=== PATIENT | female | born 1940 | race Caucasian/White ===

== ENCOUNTER 2017-02-08 13:40 | Inpatient (IN) | payer MEDICARE ==
--- NOTE | ~2017-02-08 | CR72 ---
[facility] A Service of [facility] RADIOLOGY TEXT RESULTS PATIENT: JOÃO CAMPBELL LOCATION: [place] [address]-01 : 42 UNIT #: [id number] AGE: [address]: Franky Ramirez MD SEX: F ORDER DR: [id number] [facility] [address] [facility]. [place], [place] [address] [id number] I MR#: [id number] Acc #: [id number] NAME: JOÃO CAMPBELL : 1940 SEX: F STUDY DATE/TIME: 02/08/2017 16:03 UNIT: [facility] ROOM: [facility] STUDY DESCRIPTION: CR Chest Single View Portable Attending Physician: Jossue Evans M.D. Ordering Physician: Genaro Palacios M.D. Primary Care Physician: Deonte Reid M.D. MEDICAL IMAGING REPORT This report is preliminary unless electronic signature is present EXAM Portable chest 02/08/2017 HISTORY 76-year-old female with a central line placement today. Overdose. COMPARISON STUDIES Chest 02/08/2017 at 1356 hours FINDINGS Frontal chest at 1603 hours demonstrates interval placement of a right internal jugular central venous catheter. The tip projects over the lower SVC. No pneumothorax. Endotracheal tube is stable. The nasogastric tube descends below diaphragm with tip now directed towards the distal body of the stomach. Tip not included on the exam. Lungs are clear. Heart size and mediastinum are within normal limits. IMPRESSION 1. Interval placement of a right internal jugular central venous catheter with tip projecting over the lower SVC. No pneumothorax. 2. Slight interval repositioning of nasogastric tube with tip now directed toward the body of the stomach. The tip is incompletely included on the exam. 3. No other acute chest findings. Dictated by... Abelino Hudson M.D. THIS IS AN ELECTRONICALLY VERIFIED REPORT Abelino Hudson M.D. at 02/11/2017 7:16 AM JKB/pcl [facility] A Service of [facility] RADIOLOGY TEXT RESULTS PATIENT: JOÃO CAMPBELL LOCATION: [address] 215-01 : 42 UNIT #: [id number] AGE: [address]: Franky Ramirez MD SEX: F ORDER DR: TD: 02/08/2017 23:51 JOB #: [id number] MEDICAL IMAGING REPORT Page 1 of 1 COPY
--- NOTE | ~2017-02-08 | DS ---
Unit #: [id number] #: [id number] Patient: JOÃO CAMPBELL [id number] [facility] [address]. [place], [place] [address] [id number] I MR#: [id number] NAME: JOÃO CAMPBELL ROOM: 215 Age: 76 Sex: F Admission Date: 02/08/2017 : 1940 Discharge Date: 02/12/2017 Attending Physician: Franky Ramirez M.D. Primary Care Physician: Deonte Reid M.D. DISCHARGE SUMMARY DIAGNOSES ON ADMISSION 1. Acute respiratory failure. 2. Drug overdose. DIAGNOSES ON DISCHARGE 1. Acute respiratory failure, resolved. 2. Intentional drug overdose with amitriptyline and Xanax. 3. Hypokalemia, resolved. 4. Bipolar disorder. 5. Hypertension. CONSULTATIONS 1. Dr. Blair in Pulmonary consultation. 2. Dr. Benson in Psyche consultation. LABS AND PROCEDURES DONE 1. The patient's creatinine is 1.0, sodium 135, potassium 3.4. 2. WBC 10.3, hemoglobin 10.1, platelet count 234. 3. Chest x-ray did not reveal any acute finding. 4. The patient's right ankle and foot x-rays did not reveal any acute finding. 5. Urinalysis was negative. 6. Blood culture did not reveal any growth so far. HOSPITAL COURSE This 76-year-old female is admitted to [facility] with acute respiratory failure and drug overdose. Details are as per admission H and P. The patient was admitted in ICU and was intubated. The patient was seen by Dr. Blair in consultation and was successfully extubated. The patient is doing much better. Intentional drug overdose: The patient was seen by Dr. Benson who recommended the patient can go to [facility] once stable because of suicidal attempt. Fever: The patient is having mild fever. The patient is complaining of sore throat so I believe she has acute pharyngitis and could have a touch of aspiration pneumonitis even though chest x-ray is negative. Therefore, I will discharge her on Augmentin. Today, the patient is comfortable. Vital signs revealed temperature 98.3. Pulse was 105 per minute. Respiratory rate is 18 per minute. Blood pressure is 130/71. HEENT examination revealed no conjunctival congestion. Sclerae are nonicteric. Neck is supple. Trachea is centered. Unit #: [id number] #: [id number] Patient: JOÃO CAMPBELL Respiratory examination reveals breath sounds bilaterally. No wheezes or crackles. Heart is regular rate and rhythm. S1, S2. Abdomen is soft and nontender. Bowel sounds are present in all four quadrants. Neurologically, the patient is 4/5 bilaterally. Skin is warm and dry. CONDITION Stable. ACTIVITY As tolerated. MEDICATIONS 1. Tylenol 650 mg p.o. q.6 hours p.r.n. 2. Ambien 5 mg p.o. q.h.s. p.r.n. for sleep. 3. Cozaar 100 mg p.o. daily. 4. Augmentin 875 mg p.o. b.i.d. for one week. DISPOSITION The patient will be discharged to [facility]. The plan is discussed in detail with patient who showed complete understanding. Dictated by... Chloe Appiah/julián TD: 02/12/2017 13:25 JOB #: [id number] DISCHARGE SUMMARY Page 1 of 1 X Franky Ramirez MD X DISCHARGE SUMMARY
--- NOTE | ~2017-02-08 | CO ---
Unit #: [id number] #: [id number] Patient: JÃOO CAMPBELL [id number] [facility] [address] [facility]. [place], [place] [address] [id number] I MR#: [id number] NAME: JOÃO CAMPBELL ROOM: 215 Age: 76 Sex: F Admission Date: 02/08/2017 : 1940 Attending Physician: Franky Ramirez M.D. Primary Care Physician: Deonte Reid M.D. Consultation Date: 02/12/2017 CONSULTATION REPORT REASON FOR CONSULTATION Followup. DISCUSSION Ms. João Campbell is a 76-year-old white female, seen in room 215, bed 1 on 02/12/2017 at [facility]. The patient dressed in hospital attire, lying comfortably in bed, has a sitter. The patient was able to contract for safety. Denied any thoughts of harming self or others. The patient was admitted after a suicide attempt by taking an overdose. The patient's vital signs; temperature 99.4, pulse 107, respirations 18, blood pressure 138/63, and oxygen saturation 100%. The patient was able to maintain safe behavior on the unit, compliant, and cooperative. precast worker is currently working on transferring the patient to a [facility]. MENTAL STATUS EXAMINATION Complete review of system unremarkable. MENTAL STATUS EXAMINATION Vital signs, please see above. General appearance; the patient dressed casually in hospital attire, lying comfortably in bed. Attention span and concentration, fair. Speech, regular rate and coherent. Oriented in time, place, and person. Mood and affect were sad and dysphoric, but able to smile. Thought process, coherent. Thought content, the patient denied any thoughts of harming self or others, but admitted after suicide attempt by taking an overdose. Recent and remote memory, fair. Language, intact. Fund of knowledge, fair. Insight and judgment, fair to slightly impaired. DIAGNOSIS Psychiatric: Major depressive disorder, recurrent, severe, F33.2. ASSESSMENT/PLAN 1. Supportive psychotherapy and psychoeducation provided to the patient. 2. Educated about benefits and side effects of medication and course and prognosis of illness. 3. Advised to continue with current treatment on the inpatient unit. If needed, consider further adjustment of medication. Please feel free to call if any questions, telephone #[phone]. Dictated by... Chloe Arenas/jhonny Unit #: [id number] #: [id number] Patient: JOÃO CAMPBELL TD: 02/12/2017 23:36 JOB #: [id number] CONSULTATION REPORT Page 1 of 1 X Eldon Benson MD X CONSULTATION REPORT
--- NOTE | ~2017-02-08 | DS ---
Unit #: [id number] #: [id number] Patient: JOÃO CAMPBELL [id number] [facility] [place]. [place] [address] [facility]. [place], [place] [address] [id number] I MR#: [id number] NAME: JOÃO CAMPBLEL ROOM: 215 Age: 76 Sex: F Admission Date: 02/08/2017 : 1940 Discharge Date: 02/13/2017 Attending Physician: Franky Ramirez M.D. Primary Care Physician: Deonte Reid M.D. DISCHARGE SUMMARY ADDENDUM Please note that patient refused to go to inpatient psychiatric unit. She was reevaluated by Dr. Benson today, who thought that patient can be discharged home, and he discontinued the 72-hour hold and sitter. Patient is comfortable, currently denies any suicidal ideation or intentions, and is very thankful for Dr. Benson letting her go home. She stated that she and her are trying to find another place to stay. PHYSICAL EXAMINATION VITAL SIGNS: Temperature of 98.4, pulse 104 per minute, respiratory rate 18 per minute, and blood pressure is 120/66. HEENT: No conjunctival congestion. Sclerae are nonicteric. NECK: Supple. Trachea is central. RESPIRATORY: Decreased breath sounds bilaterally. No wheezes or crackles. HEART: Regular rate and rhythm, S1 and S2. ABDOMEN: Soft and nontender. Bowel sounds are present in all four quadrants. NEUROLOGIC: Patient is alert to person, place, and time. Power is 5 over 5 bilaterally. Sensations are grossly intact. SKIN: Warm and dry. RECOMMENDATIONS ON DISCHARGE 1. Condition is stable. 2. Activity is as tolerated. DISCHARGE MEDICATIONS 1. Tylenol 650 mg p.o. q.4 hours p.r.n. pain. 2. Augmentin 875 mg p.o. b.i.d. for 5 days. 3. Losartan 100 mg p.o. daily. 4. I have discontinued patient's hydrochlorothiazide secondary to hypokalemia. FOLLOWUP Patient is advised to follow with Psychiatry as recommended. We will arrange home health regarding PT/OT and mental health counseling. Dictated by... Chloe Appiah TD: 02/13/2017 14:09 JOB #: [id number] Unit #: [id number] #: [id number] Patient: JOÃO CAMPBELL DISCHARGE SUMMARY Page 1 of 1 X Franky Ramirez MD DISCHARGE SUMMARY
--- NOTE | ~2017-02-08 | CR72 ---
[facility] A Service of [facility] RADIOLOGY TEXT RESULTS PATIENT: JOÃO CAMPBELL LOCATION: C2A : 42 UNIT #: [id number] AGE: [address]: Franky Ramirez MD SEX: F ORDER DR: [id number] [facility] [address] [facility]. [place], [place] [address] [id number] I MR#: [id number] Acc #: [id number] NAME: JOÃO CAMPBELL : 1940 SEX: F STUDY DATE/TIME: 02/11/2017 16:42 UNIT: A ROOM: [facility] STUDY DESCRIPTION: CR Chest Single View Portable Attending Physician: Franky Ramirez M.D. Ordering Physician: Amparo Bear M.D. Primary Care Physician: Deonte Reid M.D. MEDICAL IMAGING REPORT This report is preliminary unless electronic signature is present EXAM Portable chest HISTORY Respiratory failure today. Drug overdose. Fell. FINDINGS Cardiac size and pulmonary vascularity are normal. Moderate right mid-thoracic curve. Nxic-vm-xxepfidl hypertrophic spurring mid- and lower thoracic spine. No airspace infiltrates or effusions. IMPRESSION No acute findings. No active disease. Moderate mid-right thoracic curve. Dictated by... Kenneth Wasserman M.D. THIS IS AN ELECTRONICALLY VERIFIED REPORT Kenneth Wasserman M.D. at 02/11/2017 11:51 PM DFL/pcl TD: 02/11/2017 21:41 JOB #: [id number] MEDICAL IMAGING REPORT Page 1 of 1 COPY
--- NOTE | ~2017-02-08 | CO ---
Unit #: [id number] #: [id number] Patient: JOÃO CAMPBELL [place] [id number] [address] [address] [id number] I MR#: [id number] NAME: JOÃO CAMPBELL ROOM: [facility] Age: 76 Sex: F Admission Date: 02/08/2017 : 1940 Attending Physician: Franky Ramirez M.D. Primary Care Physician: Deonte Reid M.D. CONSULTATION REPORT ADDENDUM PHYSICAL EXAMINATION CHEST: Shows decreased breath sounds bilaterally. NECK: She has a right IJ placed. EXTREMITIES: Show no significant edema. CARDIOVASCULAR: Apparently is regular rate. ABDOMEN: Soft, nontender, nondistended. Very decreased bowel sounds. HEENT: Head is atraumatic, normocephalic. Oropharyngeally intubated. Dictated by... Chloe Ferrari/yazan TD: 02/09/2017 13:14 JOB #: [id number] CONSULTATION REPORT Page 1 of 1 X Nicolás Bear MD X CONSULTATION REPORT
--- NOTE | ~2017-02-08 | CO ---
Unit #: [id number] #: [id number] Patient: JOÃO CAMPBELL [id number] [place] [address] [facility]. [place], [place] [address] [id number] I MR#: [id number] NAME: JOÃO CAMPBELL ROOM: [facility] Age: 76 Sex: F Admission Date: 02/08/2017 : 1940 Attending Physician: Franky Ramirez M.D. Primary Care Physician: Deonte Reid M.D. CONSULTATION REPORT REFERRING PHYSICIAN Dr. Evans. HISTORY OF PRESENT ILLNESS This is a 76-year-old lady with a history of depression. Patient took Xanax and TCAs in large amounts, per her report. She told her . She denied any other medication that she was told. called EMS. By the time patient arrived after this intentional overdose which was done most likely due to suicidal ideation, was very lethargic and therefore required placement on the ventilator. The patient became hypotensive. Tox screen was positive for TCAs, benzodiazepines, THC and urinalysis showed increased red blood cells, otherwise negative. Basic metabolic panel showed a BUN and creatinine of 27 over 1.1. Otherwise, Chem-7 appears to be normal. Urine output is low. Patient is unable to give us a history due to being sedated on TCAs. There is no evidence of other medications on board or Tylenol toxicity. We have been asked to see for vent management. REVIEW OF SYSTEMS The review of systems is unavailable due to altered mental status. PAST MEDICAL HISTORY 1. Depression. 2. Anxiety. 3. Hypertension. 4. Blindness in the left eye. FAMILY HISTORY Significant for having a daughter with multiple sclerosis and depression. SOCIAL HISTORY The patient denies tobacco, alcohol, or polysubstance use. However, patient was positive for THC. The patient is currently retired. ALLERGIES The patient has no known allergies. MEDICATIONS The home medications appear to be: 1. Amitriptyline hydrochloride 25 mg at bedtime. 2. Losartan/hydrochlorothiazide 100/2.5 mg daily. 3. Xanax 1 mg p.o. three times daily as needed. 4. Etodolac 400 mg p.o. twice daily as needed. Unit #: [id number] #: [id number] Patient: JOÃO CAMPBELL PAST SURGICAL HISTORY x1. PHYSICAL EXAMINATION VITAL SIGNS: T-current 97.3, pulse 121, respiratory rate 18, blood pressure 115/77. CHEST: Shows decreased breath sounds bilaterally. CARDIOVASCULAR: Regular rate. No gallop. ABDOMEN: Soft, nontender, nondistended. EXTREMITIES: Showed no evidence of edema. ASSESSMENT 1. TCA overdose. 2. Hypertension, may lead to hypotension. 3. Question cardiac toxicity. EKG does not show QRS prolongation; however, there are PVCs currently. 4. Respiratory failure. 5. Poor urine output. PLAN 1. We are going to try to fluid resuscitate the patient with normal saline and bicarb. Try to get IV fluids to increase to baseline. 2. I am going to continue to monitor blood gases. I would like to leave patient on AC 14, 500 tidal volume and titrate saturations to 93% until we need any sort of sedation. 3. Renal insufficiency: I believe this may be due to TCA toxicity. However, patient may have taken NSAIDs and/or diuretics at the same time and maybe causing some renal insufficiency. We are going to give IV fluid resuscitation and then we are going to try and increase urine output if necessary. Patient may need to see nephrology. Dictated by... Chloe Ferrari/yazan TD: 02/09/2017 12:53 JOB #: [id number] CONSULTATION REPORT Page 1 of 1 X Nicolás Bear MD X CONSULTATION REPORT
--- NOTE | ~2017-02-08 | CR18 ---
[facility] A Service of [facility] & [facility] RADIOLOGY TEXT RESULTS PATIENT: JOÃO CAMPBELL LOCATION: C2A : 42 UNIT #: [id number] AGE: [address]: Franky Ramirez MD SEX: F ORDER DR: [id number] [facility] [address] [facility]. [place], [place] [address] [id number] I MR#: [id number] Acc #: [id number] NAME: JOÃO CAMPBELL : 1940 SEX: F STUDY DATE/TIME: 02/11/2017 16:45 UNIT: A ROOM: [facility] STUDY DESCRIPTION: CR Ankle 2 Views Rt Attending Physician: Franky Ramirez M.D. Ordering Physician: Franky Ramirez M.D. Primary Care Physician: Deonte Reid M.D. MEDICAL IMAGING REPORT This report is preliminary unless electronic signature is present EXAM Right ankle, 2 views HISTORY Ankle pain after fall 3 days ago. FINDINGS Two views of the right ankle demonstrate normal bone alignment. No fracture, joint space narrowing or dislocation. Mild generalized demineralization. IMPRESSION No acute findings. Dictated by... Kenneth Wasserman M.D. THIS IS AN ELECTRONICALLY VERIFIED REPORT Kenneth Wasserman M.D. at 02/11/2017 11:52 PM DFL/psc TD: 02/11/2017 21:57 JOB #: [id number] MEDICAL IMAGING REPORT Page 1 of 1 COPY
--- NOTE | ~2017-02-08 | EKG ---
PATIENT: JOÃO CAMPBELL UNIT #: [id number] Ventricular Rate: 97 BPM Atrial Rate: 97 BPM P-R Interval: 146 ms QRS Duration: 88 ms Q-T Interval: 372 ms QTC Calculation(Bezet): 472 ms P [place]: 64 degrees Calculated R [place]: 31 degrees Calculated T [place]: 22 degrees Diagnosis Line: Nonspecific ST abnormality Diagnosis Line: Low voltage QRS Diagnosis Line: Nonspecific ST and T wave abnormality Diagnosis Line: Abnormal ECG Diagnosis Line: When compared with ECG of 08-FEB-2017 14:11, Diagnosis Line: (unconfirmed) Diagnosis Line: No significant change was found Diagnosis Line: Confirmed by NOMAN URIARTE MD ([id number]) on Diagnosis Line: 02/09/2017 1:56:24 PM INTERPRETING MD: AVA
--- NOTE | ~2017-02-08 | CO ---
Unit #: [id number] #: [id number] Patient: JOÃO CAMPBELL [id number] [facility] [address] [place], [place] [address] [id number] I MR#: [id number] NAME: JOÃO CAMPBELL ROOM: 215 Age: 76 Sex: F Admission Date: 02/08/2017 : 1940 Attending Physician: Franky Ramirez M.D. Primary Care Physician: Deonte Reid M.D. Consultation Date: 02/13/2017 CONSULTATION REPORT REASON FOR CONSULTATION Followup. DISCUSSION Ms. João Campbell is a 76-year-old white female, seen in room 215, bed 1 on 02/13/2017 at [facility]. The patient dressed in hospital attire, lying comfortably in bed. The patient has a sitter at the bedside. The patient continues to report no suicidal ideation. Affect, bright. Mood good. Reports that she would like to go home. The patient still has no place to live, but she will be living with her . The patient denied any use of any drugs or alcohol. Compliant and cooperative during her stay. Denied any psychotic symptom or any suicidal or homicidal ideation. REVIEW OF SYSTEMS Complete review of systems unremarkable. MENTAL STATUS EXAMINATION The patient's vital signs; temperature 98.4, pulse 104, respirations 18, blood pressure 120/66, oxygen saturation 98%. General appearance; the patient is thin built, dressed casually in hospital attire, lying comfortably in bed. Made good eye contact. Pleasant and cooperative. Affect bright. Mood, good. Able to smile. Attention span and concentration, fair. Speech, regular rate and coherent. Oriented in time, place, and person. Mood and affect were brighter. Thought process, coherent. Thought content, the patient denied any thoughts of harming self or others or any psychotic symptom. Recent and remote memory, fair. Language, intact. Fund of knowledge, fair. Insight and judgment, fair to slightly impaired. DIAGNOSES Psychiatric: Major depressive disorder, recurrent, severe, F33.2. ASSESSMENT AND PLAN 1. Supportive psychotherapy and psychoeducation provided to the patient. 2. Educated about benefits and side effects of medication and course and prognosis of illness. 3. At this time, we are recommending to discontinue 72 hour hold and discontinue sitter and the patient may be discharged home if medically stable to follow up on the outpatient basis. The social services manager will work with appropriate placement. Please feel free to call if any questions, telephone #[phone]. Unit #: [id number] #: [id number] Patient: JOÃO CAMPBELL ANN Dictated by... Chloe Arenas/jhonny TD: 02/15/2017 03:29 JOB #: [id number] CONSULTATION REPORT Page 1 of 1 X Eldon Benson MD X CONSULTATION REPORT
--- NOTE | ~2017-02-08 | CR72 ---
[facility] A Service of [facility] RADIOLOGY TEXT RESULTS PATIENT: JOÃO CAMPBELL LOCATION: [address] : 42 UNIT #: [id number] AGE: [address]: Franky Ramirez MD SEX: F ORDER DR: [id number] [facility] [address] [place], [place] [address] [id number] I MR#: [id number] Acc #: [id number] NAME: JOÃO CAMPBELL : 1940 SEX: F STUDY DATE/TIME: 02/08/2017 1356 UNIT: [facility] ROOM: [facility] STUDY DESCRIPTION: CR Chest Single View Portable Attending Physician: Jossue Evans M.D. Ordering Physician: Genaro Palacios M.D. Primary Care Physician: Deonte Reid M.D. MEDICAL IMAGING REPORT This report is preliminary unless electronic signature is present EXAM Chest portable 02/08/2017 1356 hours CLINICAL HISTORY 76-year-old woman with overdose today requiring intubation and nasogastric tube placement today. COMPARISON 07/29/2015 FINDINGS Portable upright chest demonstrates new endotracheal tube with tip projecting 4 cm above the celina. There is a nasogastric tube with tip in the fundus of the stomach directed leftward and cephalad. The cardiac, mediastinal and hilar contours are stable. The lungs are clear and there are no effusions. There is underlying scoliosis. IMPRESSION 1. New endotracheal tube tip terminates 4 cm above the celina. Nasogastric tube tip is directed leftward and cephalad in the fundus of the stomach. 2. The lungs are clear and there are no effusions. There is no pneumothorax. Dictated by... Marti Fernandes M.D. THIS IS AN ELECTRONICALLY VERIFIED REPORT Marti Fernandes M.D. at 02/09/2017 6:58 PM Alejo TD: 02/08/2017 18:55 JOB #: [id number] [facility] A Service of [facility] RADIOLOGY TEXT RESULTS PATIENT: JOÃO CAMPBELL [facility] UNIT #: [id number] AGE: [address]: Franky Ramirez MD SEX: F ORDER DR: MEDICAL IMAGING REPORT Page 1 of 1 COPY
--- NOTE | ~2017-02-08 | CR72 ---
[facility] A Service of [facility] & [facility] RADIOLOGY TEXT RESULTS PATIENT: JOÃO CAMPBELL LOCATION: [address] : 42 UNIT #: [id number] AGE: [address]: Franky Ramirez MD SEX: F ORDER DR: [id number] [facility] [address] [place], [place] [address] [id number] I MR#: [id number] Acc #: [id number] NAME: JOÃO CAMPBELL : 1940 SEX: F STUDY DATE/TIME: 02/09/2017 12:59 UNIT: [facility] ROOM: [facility] STUDY DESCRIPTION: CR Chest Single View Portable Attending Physician: Franky Ramirez M.D. Ordering Physician: Franky Ramirez M.D. Primary Care Physician: Deonte Reid M.D. MEDICAL IMAGING REPORT This report is preliminary unless electronic signature is present EXAM Portable chest HISTORY Shortness of air and drug overdose since yesterday. Follow-up endotracheal tube. COMPARISON 02/08 FINDINGS This portable view of the chest shows the endotracheal tube, central venous catheter and nasogastric tube remain in good position. The heart size and vascularity are normal. The lungs are clear. Dictated by... Miguel Mcmanus M.D. THIS IS AN ELECTRONICALLY VERIFIED REPORT Miguel Mcmanus M.D. at 02/10/2017 7:03 AM BARTOLO/verna TD: 02/09/2017 21:50 JOB #: [id number] MEDICAL IMAGING REPORT Page 1 of 1 COPY
--- NOTE | ~2017-02-08 | EKG ---
PATIENT: JOÃO CAMPBELL UNIT #: [id number] Ventricular Rate: 87 BPM Atrial Rate: 87 BPM P-R Interval: 140 ms QRS Duration: 80 ms Q-T Interval: 378 ms QTC Calculation(Bezet): 454 ms P [place]: 58 degrees Calculated R [place]: 26 degrees Calculated T [place]: 38 degrees Diagnosis Line: Sinus rhythm Diagnosis Line: Low voltage QRS Diagnosis Line: Nonspecific ST abnormality Diagnosis Line: Abnormal ECG Diagnosis Line: When compared with ECG of 08-FEB-2017 17:50, Diagnosis Line: (unconfirmed) Diagnosis Line: Nonspecific T wave abnormality now evident in Diagnosis Line: Lateral leads Diagnosis Line: Confirmed by NOMAN URIARTE MD ([id number]) on Diagnosis Line: 02/09/2017 1:59:08 PM INTERPRETING MD: AVA
--- NOTE | ~2017-02-08 | CR124 ---
[facility] A Service of [facility] & [facility] RADIOLOGY TEXT RESULTS PATIENT: JOÃO CAMPBELL LOCATION: C2A : 42 UNIT #: [id number] AGE: [address]: Franky Ramirez MD SEX: F ORDER DR: [id number] [facility] [address]. [place], [place] [address] [id number] MR#: [id number] Acc #: [id number] NAME: JOÃO CAMPBELL : 1940 SEX: F STUDY DATE/TIME: 02/11/2017 16:44 UNIT: A ROOM: [facility] STUDY DESCRIPTION: CR Foot 2 Views Rt Attending Physician: Franky Ramirez M.D. Ordering Physician: Franky Ramirez M.D. Primary Care Physician: Deonte Reid M.D. MEDICAL IMAGING REPORT This report is preliminary unless electronic signature is present EXAM Right foot 2 views HISTORY Foot pain after fall 3 days ago. FINDINGS 2 views of the right foot demonstrate normal bone alignment. No fracture, joint space narrowing or dislocation. Mild arterial calcifications. Generalized demineralization. Mild degenerative changes in the midfoot. IMPRESSION No acute findings. Dictated by... Kenneth Wasserman M.D. THIS IS AN ELECTRONICALLY VERIFIED REPORT Kenneth Wasserman M.D. at 02/11/2017 11:52 PM DFL/pcl TD: 02/11/2017 21:53 JOB #: [id number] MEDICAL IMAGING REPORT Page 1 of 1 COPY
--- NOTE | ~2017-02-08 | CO ---
Unit #: [id number] #: [id number] Patient: JOÃO CAMPBELL [id number] [facility] [address]. [place], [place] [address] [id number] MR#: [id number] NAME: JOÃO CAMPBELL ROOM: 215 Age: 76 Sex: F Admission Date: 02/08/2017 : 1940 Attending Physician: Franky Ramirez M.D. Primary Care Physician: Deonte Reid M.D. Consultation Date: 02/11/2017 CONSULTATION REPORT DISCUSSION Ms. João Campbell is a 76-year-old white female, seen in room 215, bed 1 on 02/11/2017 at [facility]. The patient has a sitter, pleasant, cooperative, lying comfortably in bed, dressed in hospital attire. The patient denied any thoughts of harming self or others, seems somewhat anxious about leaving as the patient was evicted from her apartment. The patient reports sleeping good. Denied any complaint, able to contract for safety. REVIEW OF SYSTEMS Complete review of systems unremarkable. PHYSICAL EXAMINATION VITAL SIGNS: Temperature 97.0, pulse 112, respirations 18, blood pressure 112/59, oxygen saturation 96%. MENTAL STATUS EXAMINATION General appearance; the patient dressed casually, lying comfortably in bed. Attention span and concentration, fair. Speech, regular rate and coherent. Oriented in time, place, and person. Mood and affect, sad and dysphoric, but able to smile. Thought process, coherent and goal directed. Thought content, the patient denied any thoughts of harming self or others. Denied any hallucination. Recent and remote memory, fair. Language, intact. Fund of knowledge, fair. Insight and judgment, fair to slightly impaired. DIAGNOSIS Psychiatric: Major depressive disorder, recurrent, severe, F33.2. ASSESSMENT/PLAN 1. Supportive psychotherapy and psychoeducation provided to the patient. 2. Educated about benefits and side effects of medication and course and prognosis of illness. 3. Advised to continue with current treatment on the inpatient unit. The patient is able to contract for safety at this time. hold worker is currently looking for placement, because of her home situation. Please feel free to call if any questions, telephone #[phone]. We will try to obtain collateral information from family. The patient is on a 72-hour hold and has a sitter in the room. Dictated by... Eldon Benson M.D. Unit #: [id number] #: [id number] Patient: JOÃO CAMPBELL DAVIDA/jhonny TD: 02/11/2017 23:50 JOB #: [id number] CONSULTATION REPORT Page 1 of 1 X Eldon Benson MD CONSULTATION REPORT
--- NOTE | ~2017-02-08 | CR63 ---
[facility] A Service of [facility] & [facility] RADIOLOGY TEXT RESULTS PATIENT: JOÃO CAMPBELL ANN LOCATION: C2A - : 42 UNIT #: [id number] AGE: [address]: Franky Ramirez MD SEX: F ORDER DR: [id number] [facility] [address]. [place], [place] [address] [id number] I MR#: [id number] Acc #: [id number] NAME: JOÃO CAMPBELL : 1940 SEX: F STUDY DATE/TIME: 02/11/2017 7:09 UNIT: A ROOM: [facility] STUDY DESCRIPTION: CR Chest 2 View Attending Physician: Franky Ramirez M.D. Ordering Physician: Tarun Blair M.D. Primary Care Physician: Deonte Reid M.D. MEDICAL IMAGING REPORT This report is preliminary unless electronic signature is present EXAM Chest 2 views 02/11/2017 INDICATIONS 76-year-old female with fever, overdose, shortness of air. Symptoms since February 08. Hypertension. TECHNIQUE 2 views of the chest were performed and compared with 02/09/2017 FINDINGS There is dextroscoliosis. Cardiac silhouette within normal limits. The vascularity is normal. There is no effusion, pneumothorax or dense consolidation. There is some probable asymmetric atelectasis or faint infiltrate in the suprahilar region on the left. Follow up to clearing after appropriate therapy recommended. Trace blunting of the CP angles bilaterally may reflect trace effusions or chronic pleural reaction. There is multilevel thoracic spondylosis. IMPRESSION 1. Trace blunting of the CP angles may reflect trace effusions or chronic pleural reaction. 2. There is some faint asymmetric atelectasis or infiltrate in the suprahilar region on the left. 3. No dense consolidation or pneumothorax. Dextroscoliosis. Preexisting tubes and lines have been removed. Dictated by... Higinio Park M.D. THIS IS AN ELECTRONICALLY VERIFIED REPORT Higinio Park M.D. at 02/11/2017 12:44 PM CHERYL/yarely STS. [facility] A Service of [facility] & [facility] RADIOLOGY TEXT RESULTS PATIENT: JOÃO CAMPBELL LOCATION: [place] [address]- : 42 UNIT #: [id number] AGE: [address]: Farnky Ramirez MD SEX: F ORDER DR: TD: 02/11/2017 09:45 JOB #: [id number] MEDICAL IMAGING REPORT Page 1 of 1 COPY
--- NOTE | ~2017-02-08 | EKG ---
PATIENT: JOÃO CAMPBELL UNIT #: [id number] Ventricular Rate: 110 BPM Atrial Rate: 110 BPM P-R Interval: 142 ms QRS Duration: 78 ms Q-T Interval: 328 ms QTC Calculation(Bezet): 443 ms P [place]: 50 degrees Calculated R [place]: 44 degrees Calculated T [place]: 24 degrees Diagnosis Line: Sinus tachycardia with occasional Premature Diagnosis Line: ventricular complexes Diagnosis Line: Low voltage QRS Diagnosis Line: Abnormal ECG Diagnosis Line: When compared with ECG of 09-FEB-2017 01:15, Diagnosis Line: (unconfirmed) Diagnosis Line: Nonspecific T wave abnormality no longer evident Diagnosis Line: in Lateral leads Diagnosis Line: Confirmed by NOMAN URIARTE MD ([id number]) on Diagnosis Line: 02/09/2017 2:08:52 PM INTERPRETING MD: AVA
--- NOTE | ~2017-02-08 | HP ---
Unit #: [id number] #: [id number] Patient: JOÃO CAMPBELL [id number] [address] [place], [place] [address] [id number] I MR#: [id number] NAME: JOÃO CAMPBELL ROOM: CIC3 Age: 76 Sex: F Admission Date: 02/08/2017 : 1940 Attending Physician: Franky Ramirez M.D. Primary Care Physician: Deonte Reid M.D. HISTORY AND PHYSICAL CHIEF COMPLAINT The drug overdose. HISTORY OF PRESENT ILLNESS The patient is a 76-year-old female with a history of hypertension and bipolar disorder, brought to the emergency room with a drug overdose with a suicidal attempt. The patient took 30 tablets of the 25 mg of amitriptyline and 10 to 12 tablets of Xanax 1 mg for the suicidal attempt. The patient was having financial problems and patient was evicted from home today and patient became more depressed and tried to attempt suicide. The patient was obtunded, unable to provide any history at the time of arrival. The patient was intubated in the ER by the ER physician. The patient is status post intubation and unable to provide any further history and no family is present to provide any more history. PAST MEDICAL HISTORY 1. Hypertension. 2. Bipolar disorder. PAST SURGICAL HISTORY 1. Hip replacement. 2. . ALLERGIES Morphine. HOME MEDICATIONS Losartan, amitriptyline, Xanax. SOCIAL HISTORY Lifelong nonsmoker, does not drink alcohol or any illicit drug abuse. FAMILY HISTORY Positive for CAD and COPD. REVIEW OF SYSTEMS Unable to obtain. PHYSICAL EXAMINATION GENERAL APPEARANCE: On examination the patient is status post intubation and sedation. VITAL SIGNS: Temperature 97.3, pulse 141, respiratory rate 22, blood pressure 179/105, sating 100% on ventilator. HEENT: Head atraumatic/normocephalic. Pupils equal, round and reacting Unit #: [id number] #: [id number] Patient: JOÃO CAMPBELL to light and accommodation. Extraocular movements are intact. NECK: Supple. LUNGS: Coarse breath sounds. Decreased air entry. HEART: Regular rate. ABDOMEN: Soft. Positive bowel sounds. EXTREMITIES: No cyanosis. No clubbing. NEUROLOGIC: Status post intubation and sedation. DIAGNOSTIC STUDIES LABORATORY DATA: Troponin less than 0.05. WBC 6.4, hemoglobin 12, hematocrit 36.5, platelets 256, INR is 1, sodium 142, potassium 3.2, chloride 106, bicarb 26, glucose 99, BUN 27, creatinine 1.1, AST 16, ALT 11, alkaline phosphatase 68, albumin 4.1, acetaminophen less than 10, salicylate less than 4, alcohol less than 5 and UA shows 0.2 urobilinogen, 2+ blood. IMAGING: Chest x-ray shows lungs are clear. CARDIOVASCULAR: The EKG shows sinus tachycardia at a rate of 119 beats per minute and the QTc of 469. The patient's rhythm strip at time of EMS arrival showed the bigeminy and the patient received the bicarb. In the emergency room the patient received the charcoal. ASSESSMENT 1. Drug overdose. 2. Suicidal attempt. 3. Acute respiratory failure, status post intubation. 4. Bipolar disorder. 5. Hypokalemia. PLAN 1. Plan to admit the patient to the ICU. 2. Patient will have a pulmonary critical care consult and check the lactate and initiate the sepsis protocol if the lactate is high and replace the potassium per protocol 3. Further recommendations will follow. Dictated by Chloe Purcell/ward TD: 02/08/2017 16:35 JOB #: [id number] Unit #: [id number] #: [id number] Patient: JOÃO CAMPBELL HISTORY AND PHYSICAL Page 1 of 1 X MIGUEL PERES MD X HISTORY AND PHYSICAL
--- NOTE | ~2017-02-08 | CO ---
Unit #: [id number] #: [id number] Patient: JOÃO CAMPBELL [id number] [facility] [address] [facility]. [place], [place] [address] [id number] I MR#: [id number] NAME: JOÃO CAMPBELL ROOM: 215 Age: 76 Sex: F Admission Date: 02/08/2017 : 1940 Attending Physician: Franky Ramirez M.D. Primary Care Physician: Deonte Reid M.D. Consultation Date: 02/10/2017 CONSULTATION REPORT REASON FOR CONSULTATION Overdose, depression. HISTORY OF PRESENT ILLNESS Ms. João Campbell is a 76-year-old white female seen in room 215, bed 1, at [facility] on 02/10/17. The patient was lying comfortably in bed, dressed in hospital attire, thinly built, has a sitter, on 72-hour hold. Patient admitted that she took a handful of amitriptyline when she was upset. The patient reported she became mad, upset because they were evicted from home. The patient still does not know where she is going to live but able to account for safety. The patient was able to answer questions coherently. Denied any current suicidal ideation or any psychotic symptoms but admitted tried to harm herself by taking overdose. Patient has good support from but no support from children; she has grownup kids. The patient denied any use of any drugs or alcohol. Vital signs - 100.0; 105; 15; 140/58; oxygen saturation 95%. PAST PSYCHIATRIC HISTORY Remarkable for history of [place] [facility], diagnosed with bipolar mood disorder. No history of any prior suicide attempt. MEDICAL HISTORY History of recent overdose, history of bipolar disorder, hypertension. ALLERGIES Morphine. MEDICATIONS Patient is on KCl, Cozaar, Hydrochlorothiazide. FAMILY HISTORY/SOCIAL HISTORY Patient has good support from . Currently having problems with housing. No history of abuse. No history of any substance abuse. REVIEW OF SYSTEMS A complete review of systems is unremarkable except as mentioned above. MENTAL STATUS EXAMINATION Vital signs - Please see above. General appearance - Patient is thinly built, dressed casually, lying comfortably in bed. Attention span, concentration - Fair. Speech - Regular rate, coherent. Oriented to time, place and person. Mood and affect - Sad, dysphoric, anxious. Thought Unit #: [id number] #: [id number] Patient: JOÃO CAMPBELL process - Coherent. Thought content - Patient denied any thoughts of harming self or others or any psychotic symptoms but admitted taking overdose intentionally. Recent and remote memory - Fair. Language - Intact. Fund of knowledge - Fair. Insight and judgment - Fair to slightly impaired. DIAGNOSIS 1. PSYCHIATRIC: Major depressive disorder, recurrent, severe, F33.2; history of bipolar mood disorder, depressed, F31.9. 2. SECONDARY DIAGNOSIS: Deferred 3. MEDICAL DIAGNOSIS: Please refer to H and P. 4. STRESSOR: Psychosocial stressors. ASSESSMENT AND PLAN 1. Supportive psychotherapy and psychoeducation provided to the patient. 2. Educated about benefits and side effects of medication and course and prognosis of illness. 3. Advised to continue with current treatment, one-to-one monitoring, sitter, and 72-hour hold. Consider stabilizing the patient and transferring patient to inpatient psych treatment for psych stabilization. If needed, consider alternative plan. Please feel free to call with any questions, telephone number . Dictated by... Chloe Arenas/gale TD: 02/11/2017 13:44 JOB #: [id number] CONSULTATION REPORT Page 1 of 1 X Eldon Benson MD X CONSULTATION REPORT
--- NOTE | ~2017-02-08 | EKG ---
PATIENT: JOÃO CAMPBELL UNIT #: [id number] Ventricular Rate: 119 BPM Atrial Rate: 119 BPM P-R Interval: 140 ms QRS Duration: 98 ms Q-T Interval: 334 ms QTC Calculation(Bezet): 469 ms P [place]: 56 degrees Calculated R [place]: 27 degrees Calculated T [place]: 37 degrees Diagnosis Line: Sinus tachycardia Diagnosis Line: Nonspecific ST and T wave abnormality Diagnosis Line: Abnormal ECG Diagnosis Line: When compared with ECG of 29-JUL-2015 01:13, Diagnosis Line: Premature ventricular complexes are no longer Diagnosis Line: Present Diagnosis Line: QRS duration has increased Diagnosis Line: Confirmed by NOMAN URIARTE MD ([id number]) on Diagnosis Line: 02/09/2017 1:44:14 PM INTERPRETING MD: AVA
[~2017-02-08 13:40] MED LIST: ACETAMINOPHEN PO; ALPRAZOLAM; ANTI DEPRESSANT PO; BLOOD PRESSURE PILL; COZAAR PO; COZAAR25 MG PO; DIOVAN HCT 160-1 TAB PO; KEFLEX500 M1 PO; KLONOPIN PO; KLONOPIN1 MG PO; KLONOPIN2 MG PO; LEXAPRO PO; LOSARTAN-HCTZ1 EAC3 PO; MAGNESIUM OXID200 MG PO; PROZAC10 M1 PO; ROBAXIN 750750 M1 PO; SEROQUEL50 MG PO; TRAMADOL HCL50 M1 PO; TYLENOL #3 PO; VANTIN200 MG PO; VENLAFAXINE HCL75 M1 PO; VENLAFAXINE HCL75 M2 PO; VENLAFAXINE PO; XANAX1 MG PO
[2017-02-08 14:15] LABS: POC - CKMB <1.0 ng/mL (0.0-7.9); POC - TROPONIN <0.05 ng/mL (<=0.05)
[2017-02-08] MEDS ORDERED: LOSARTAN-HCTZ1 EAC1 PO (14:16)
[2017-02-08] MEDS ORDERED: AMITRIPTYLINE H25 MG PO (14:16)
[2017-02-08] MEDS ORDERED: PATIENT'S PHARMACY (14:16)
[2017-02-08] MEDS ORDERED: XANAX1 MG PO (14:16)
[2017-02-08] MEDS ORDERED: LODINE400 M1 PO (14:17)
[2017-02-08 14:24] LABS: BASOPHIL# 0.1 X10e3 (0-0.3); BASOPHIL% 1.1 % (0-2.5); EOSINOPHIL# 0.1 X10e3 (0-0.7); EOSINOPHIL% 1.5 % (0.0-7.0); HEMATOCRIT 36.5 % (35.0-45.0); LYMPHOCYTE# 1.8 X10e3 (1.0-3.5); LYMPHOCYTE% 27.8 % (17.0-45.0); MEAN CELL VOLUME 88.2 FL (83-96); MEAN CORPUSCULAR HGB CONC 32.9 g/dL (30-36); MEAN PLATELET VOLUME 8.7 FL (6.5-11.5); MONOCYTE# 0.6 X10e3 (0-1.0); MONOCYTE% 8.9 % (3.0-12.0); NEUTROPHIL# 3.9 X10e3 (1.5-7.1); NEUTROPHIL% 60.7 % (40-75); PLATELET COUNT 256 X10e3 (140-420); RED BLOOD COUNT 4.14 X10e (3.90-5.30); RED CELL DISTRIBUTION WIDTH 14.3 % (11.0-15.5); WHITE BLOOD COUNT 6.4 X10e3 (4.0-10.5)
[2017-02-08 14:25] LABS: DIFF IND NO
[2017-02-08 14:29] LABS: PARTIAL THROMBOPLASTIN TIME 25.2 SECONDS (23.5-31.3); PROTHROMBIN TIME (PATIENT) 10.6 SECONDS (9.6-11.5)
[2017-02-08 14:47] LABS: ALBUMIN SERUM 4.1 g/dL (3.5-5.0); ALKALINE PHOSPHATASE 68 U/L (32-92); ALT (SGPT) 11 U/L (10-40); AST (SGOT) 16 U/L (10-42); BILIRUBIN, DIRECT 0.1 mg/dL (0.0-0.2); BILIRUBIN,INDIRECT 0.6 mg/dL (0.0-0.9); BILIRUBIN,TOTAL 0.7 mg/dL (0.2-2.0); BLOOD UREA NITROGEN 27 mg/dL (9-23); BUN/CREATININE RATIO 24.54; CALCIUM SERUM 9.2 mg/dL (8.4-10.2); CARBON DIOXIDE 26 mmol/L (22-31); CHLORIDE 106 mmol/L (100-111); CREATININE SERUM 1.1 mg/dL (0.6-1.4); GLOM FILT RATE Estimated 49.4 mL/min (>60); GLUCOSE FASTING 99 mg/dL (70-110); POTASSIUM 3.2 mmol/L (3.5-5.1); PROTEIN TOTAL SERUM 7.2 g/dL (6.0-8.3); SALICYLATE <4.0 mg/dL; SODIUM 142 mmol/L (135-145)
[2017-02-08 14:50] LABS: ACETAMINOPHEN <10 ug/mL; ALCOHOL BLOOD <5 mg/dL (0)
[2017-02-08 15:01] LABS: URINE SOURCE CLEAN CATCH
[2017-02-08 15:18] LABS: CULTURE INDICATED? NO; URINE APPEARANCE CLOUDY; URINE BACTERIA AUWI NEG (NEGATIVE); URINE BILIRUBIN NEG (NEG); URINE BLOOD 2+ (NEG); URINE COLOR YELLOW; URINE GLUCOSE NEG (NEG); URINE KETONE NEG (NEG); URINE LEUKOCYTE ESTERASE NEG (NEG); URINE NITRATE NEG (NEG); URINE PH 5.5 (5-8); URINE PROTEIN NEG (NEG); URINE SQUAMOUS EPITHELIAL CELL MOD /[HPF]; URINE UROBILINOGEN 0.2 MG/DL (NEG)
[2017-02-08 15:31] LABS: AMPHETAMINE NEG (NEG); BARBITURATES NEG (NEG); BENZODIAZEPINES POS (NEG); COCAINE NEG (NEG); MARIJUANA POS (NEG); OPIATES NEG (NEG); TRICYCLIC ANTIDEPRESSANTS POS (NEG); U METHADONE NEG (NEG)
[2017-02-08 16:15] LABS: ARTERIAL BLD GAS O2 SATURATION 99.6 % (90.0-100.0); ARTERIAL BLOOD GAS HCO3 25.3 mmol/L; ARTERIAL BLOOD GAS PCO2 40.3 mmHg (35.0-45.0); ARTERIAL DRAW? YES
[2017-02-08 16:16] LABS: ARTERIAL BLOOD GAS ALLEN TEST NORMAL; ARTERIAL BLOOD GAS ART SITE ARTERIAL LINE; ARTERIAL BLOOD GAS DELIVERY VENT; ARTERIAL BLOOD GAS VENT MODE AC
[2017-02-08 18:23] LABS: ACETAMINOPHEN <10 ug/mL; SALICYLATE <4.0 mg/dL
[2017-02-09 03:04] LABS: BILIRUBIN,TOTAL 0.8 mg/dL (0.2-2.0); BUN/CREATININE RATIO 22.5; CALCIUM SERUM 7.6 mg/dL (8.4-10.2); CREATININE SERUM 0.8 mg/dL (0.6-1.4); GLOM FILT RATE Estimated 72.7 mL/min (>60); PROTEIN TOTAL SERUM 5.4 g/dL (6.0-8.3)
[2017-02-09 04:07] LABS: ARTERIAL BLOOD GAS pH 7.526 (7.350-7.450)
[2017-02-09 04:08] LABS: ARTERIAL BLOOD GAS ART SITE ARTERIAL LINE; ARTERIAL BLOOD GAS CARBOXY HB 0.1 %sat (0.0-9.0); ARTERIAL BLOOD GAS DELIVERY VENT; ARTERIAL BLOOD GAS HCO3 29.6 mmol/L; ARTERIAL BLOOD GAS MET HB 0.8 %sat (0.0-2.0); ARTERIAL BLOOD GAS PCO2 35.7 mmHg (35.0-45.0); ARTERIAL BLOOD GAS VENT MODE AC; ARTERIAL DRAW? YES
[2017-02-09 13:47] LABS: ARTERIAL BLD GAS O2 SATURATION 99.1 % (90.0-100.0); ARTERIAL BLOOD GAS HCO3 32.9 mmol/L; ARTERIAL BLOOD GAS PCO2 42.1 mmHg (35.0-45.0); ARTERIAL BLOOD GAS pH 7.501 (7.350-7.450)
[2017-02-09 13:48] LABS: ARTERIAL BLOOD GAS ALLEN TEST N; ARTERIAL BLOOD GAS ART SITE LEFT RADIAL; ARTERIAL BLOOD GAS CARBOXY HB 0.4 %sat (0.0-9.0); ARTERIAL BLOOD GAS DELIVERY VENT; ARTERIAL BLOOD GAS MET HB 0.9 %sat (0.0-2.0); ARTERIAL BLOOD GAS VENT MODE IMV; ARTERIAL DRAW? YES
[2017-02-10 07:52] LABS: BASOPHIL% 0.4 % (0-2.5); EOSINOPHIL# 0.1 X10e3 (0-0.7); EOSINOPHIL% 1.2 % (0.0-7.0); HEMATOCRIT 32.1 % (35.0-45.0); HEMOGLOBIN 10.6 gm/dL (12.0-16.0); LYMPHOCYTE# 1.3 X10e3 (1.0-3.5); MEAN CELL VOLUME 88.5 FL (83-96); MEAN CORPUSCULAR HEMOGLOBIN 29.2 PG (28-34); MEAN PLATELET VOLUME 8.7 FL (6.5-11.5); MONOCYTE# 1.1 X10e3 (0-1.0); MONOCYTE% 10.9 % (3.0-12.0); NEUTROPHIL# 7.9 X10e3 (1.5-7.1); NEUTROPHIL% 75.5 % (40-75); PLATELET COUNT 196 X10e3 (140-420); RED BLOOD COUNT 3.62 X10e (3.90-5.30); RED CELL DISTRIBUTION WIDTH 13.9 % (11.0-15.5)
[2017-02-10 07:57] LABS: DIFF IND NO; WHITE BLOOD COUNT 10.5 X10e3 (4.0-10.5)
[2017-02-10 08:25] LABS: BUN/CREATININE RATIO 13.33; CALCIUM SERUM 7.9 mg/dL (8.4-10.2); CREATININE SERUM 0.9 mg/dL (0.6-1.4)
[2017-02-11 06:18] LABS: CALCIUM SERUM 8.3 mg/dL (8.4-10.2); GLOM FILT RATE Estimated 55.5 mL/min (>60); MAGNESIUM 1.5 mg/dL (1.6-3.0); POTASSIUM 3.3 mmol/L (3.5-5.1)
[2017-02-12 05:17] LABS: HEMATOCRIT 30.3 % (35.0-45.0); HEMOGLOBIN 10.1 gm/dL (12.0-16.0); MEAN CELL VOLUME 87.7 FL (83-96); MEAN CORPUSCULAR HEMOGLOBIN 29.3 PG (28-34); MEAN CORPUSCULAR HGB CONC 33.4 g/dL (30-36); RED BLOOD COUNT 3.45 X10e (3.90-5.30); RED CELL DISTRIBUTION WIDTH 13.8 % (11.0-15.5); WHITE BLOOD COUNT 10.3 X10e3 (4.0-10.5)
[2017-02-12 05:55] LABS: CALCIUM SERUM 8.7 mg/dL (8.4-10.2); GLOM FILT RATE Estimated 55.5 mL/min (>60); MAGNESIUM 1.7 mg/dL (1.6-3.0); POTASSIUM 3.4 mmol/L (3.5-5.1)
[2017-02-13 03:55] LABS: URINE SOURCE CLEAN CATCH
[2017-02-13 04:00] LABS: URINE APPEARANCE CLEAR; URINE BILIRUBIN NEG (NEG); URINE BLOOD 1+ (NEG); URINE COLOR YELLOW; URINE GLUCOSE NEG (NEG); URINE KETONE NEG (NEG); URINE LEUKOCYTE ESTERASE 3+ (NEG); URINE NITRATE NEG (NEG); URINE PH 7.5 (5-8); URINE PROTEIN NEG (NEG); URINE SPECIFIC GRAVITY 1.011 (1.003-1.035)
[2017-02-13 04:03] LABS: CULTURE INDICATED? YES; URINE BACTERIA AUWI NEG (NEGATIVE); URINE SQUAMOUS EPITHELIAL CELL NONE SEEN /[HPF]; UWBCS1 AUWI 50-100 (0-5)
[2017-02-13 07:36] LABS: MAGNESIUM 1.9 mg/dL (1.6-3.0); POTASSIUM 3.7 mmol/L (3.5-5.1)
[2017-02-13] MEDS ORDERED: APAP325 M2 PO (14:25)
[2017-02-13] MEDS ORDERED: MYCOSTATIN POWD15 GM EXT (14:26)
[2017-02-13] MEDS ORDERED: LOSARTAN POTASS50 MG PO (14:28)
[2017-02-13] MEDS ORDERED: AUGMENTIN PO (14:28)
== END 2017-02-13 15:28 | disposition home or self-care (01) | DRG 917 ==
LOC: CED 13:40 → C2A 16:24 → CEDOF 16:24 → CICCU3 18:30 → C2A 02-10 13:35
PROVIDERS: Emergency Medicine; Internal Medicine; Internal Medicine Pulmonary Disease
PROC: 05HM33Z Insertion of Infusion Device into Right Internal Jugular Vein, Percutaneous Approach (ICD-10-PCS; principal; 2017-02-08)
PROC: B543ZZA Ultrasonography of Right Jugular Veins, Guidance (ICD-10-PCS; 2017-02-08)
DX: T43.012A Poisoning by tricyclic antidepressants, intentional self-harm, initial encounter (principal); J96.00 Acute respiratory failure, unspecified whether with hypoxia or hypercapnia; R40.20 Unspecified coma; F33.2 Major depressive disorder, recurrent severe without psychotic features; T42.4X2A Poisoning by benzodiazepines, intentional self-harm, initial encounter; I10 Essential (primary) hypertension; Z96.649 Presence of unspecified artificial hip joint; E87.6 Hypokalemia; H54.42 Blindness, left eye, normal vision right eye; M25.571 Pain in right ankle and joints of right foot; W19.XXXA Unspecified fall, initial encounter; D64.9 Anemia, unspecified
CPT/HCPCS: 31500; 36600; 51702; 71010; 71020; 73600; 73620; 80048; 80053; 80076; 80307; 81003; 82553; 82803; 82947; 83605; 83735; 84132; 84484; 85025; 85027; 85610; 85730; 87040; 87086; 93005; 94002; 94003; 94760; 94761; 96361; 96374; 99291; C1769; G0480; J3475; J7060